=== PATIENT | female | born 1960 | race Caucasian/White ===

== ENCOUNTER → 2022-07-13 | Outpatient (CLI) | payer MEDICARE, OTHER | LOC: MHCPAIN 08:44 | DX: M47.897 Other spondylosis, lumbosacral region (principal); M54.16 Radiculopathy, lumbar region; M54.2 Cervicalgia | CPT/HCPCS: G0463 ==

== ENCOUNTER → 2022-07-30 | Outpatient (CLI) | payer MEDICARE, OTHER | LOC: MHCPAIN 12:38 | DX: M47.816 Spondylosis without myelopathy or radiculopathy, lumbar region (principal); M54.16 Radiculopathy, lumbar region | CPT/HCPCS: J1100; Q9967 ==

== ENCOUNTER → 2022-08-25 | Outpatient (CLI) | payer MEDICARE, OTHER | LOC: MHCPAIN 09:09 | DX: M47.897 Other spondylosis, lumbosacral region (principal); M54.16 Radiculopathy, lumbar region; M54.2 Cervicalgia | CPT/HCPCS: G0463 ==

== ENCOUNTER → 2022-08-27 | Outpatient (CLI) | payer MEDICARE, OTHER | LOC: MHCPAIN 11:50 | DX: M47.817 Spondylosis without myelopathy or radiculopathy, lumbosacral region (principal); M54.16 Radiculopathy, lumbar region | CPT/HCPCS: J1100; Q9967 ==

== ENCOUNTER → 2023-09-28 | Outpatient (CLI) | payer MEDICARE, OTHER | LOC: MHCPAIN 09:19 | DX: M47.896 Other spondylosis, lumbar region (principal); M47.892 Other spondylosis, cervical region; M79.18 Myalgia, other site | CPT/HCPCS: G0463 ==

== ENCOUNTER → 2023-12-28 | Outpatient (CLI) | payer MEDICARE, OTHER | LOC: MC.RAD 10:07 | DX: Z12.31 Encounter for screening mammogram for malignant neoplasm of breast (principal) ==

== ENCOUNTER → 2024-01-06 | Outpatient (CLI) | payer MEDICARE, OTHER | LOC: MHCPAIN | DX: M47.817 Spondylosis without myelopathy or radiculopathy, lumbosacral region (principal) | CPT/HCPCS: J0665 ==

== ENCOUNTER → 2024-01-11 | Outpatient (CLI) | payer MEDICARE, OTHER | LOC: COL.RAD 08:54 | DX: K22.4 Dyskinesia of esophagus (principal) ==